=== PATIENT | male | born 1980 | race Caucasian/White ===

== ENCOUNTER 2021-02-07 20:26 | Emergency (ER) | payer OTHER ==
[2021-02-07] MEDS ORDERED: CILOXAN5 ML EYERT (21:35)
[2021-02-07] MEDS ORDERED: ACULAR5 ML OD (21:36)
== END 2021-02-07 22:12 | disposition home or self-care (01) ==
LOC: FER 20:26
DX: T15.01XA Foreign body in cornea, right eye, initial encounter (principal); I10 Essential (primary) hypertension
CPT/HCPCS: 99283